=== PATIENT | female | born 1995 | race Caucasian/White ===

== ENCOUNTER → 2021-10-31 | Emergency (ER) | payer MEDICAID ==
[~2021-10-31] VITALS: Ht 180.3 cm; Wt 72.6 kg
[~2021-10-31] MED LIST: AMOX-430 PO; ASPIRIN 81 MG TAB.CHEW ONE; NEOMY/BACITRA/POLYMYXIN B OINT UD PACKET TP ONE; TDAP DIPH,PERTUSS,TET VAC/PF 0.5 ML DISP.SYRIN IM ONE
--- NOTE | 2021-10-31 16:45 | NUR ---
Patient stated that the dog was vaccinated. Tetanus vaccine in 2010; and had not had any anti-rabies.
[2021-10-31] MEDS: TDAP DIPH,PERTUSS,TET VAC/PF 0.5 ML DISP.SYRIN IM ONE (17:00)
[2021-10-31] MEDS: NEOMY/BACITRA/POLYMYXIN B OINT UD PACKET TP ONE (17:17)
--- NOTE | 2021-10-31 17:34 | NUR ---
Discussed home care and follow-up with primary doctor. Oral antibiotic teaching given. Patient stable to go home. Expressed understanding of care and follow-up. No reaction from the TDAP vaccnie. Will follow-up.
== END | disposition home or self-care (01) ==
LOC: ER 15:41
DX: S61.012A Laceration without foreign body of left thumb without damage to nail, initial encounter (principal); S61.052A Open bite of left thumb without damage to nail, initial encounter; Z88.8 Allergy status to other drugs, medicaments and biological substances; Z79.899 Other long term (current) drug therapy; W54.0XXA Bitten by dog, initial encounter; Y93.89 Activity, other specified; Y92.89 Other specified places as the place of occurrence of the external cause; Y99.8 Other external cause status
CPT/HCPCS: 90715; A4663